=== PATIENT | male | born 1995 | race Hispanic/Latino ===

== ENCOUNTER 2017-12-17 06:42 | Emergency (ER) | payer SELFPAY ==
--- NOTE | 2017-12-17 07:30 | ER ---
Nurse's Notes [facility] Name: Jony Yuan Age: 22 yrs Sex: Male : 1995 Arrival Date: 12/17/2017 Time: 06:43 Bed 20 Private MD: Diagnosis: Acute upper respiratory infection, unspecified Presentation: 12/17 06:52 Presenting complaint: Patient states: "I'm feeling really congested and it hurts and jd3 hard for me to breath". Transition of care: patient was not received from another setting of care. Onset of symptoms was December 17, 2017. Care prior to arrival: None. 06:52 Method Of Arrival: Ambulatory jd3 06:52 Acuity: VIN 4 jd3 Historical: - Allergies: 07:01 No Known Allergies; jd3 - Home Meds: 07:01 None [Active]; jd3 - PMHx: 07:01 None; jd3 - PSHx: 07:01 right 5th finger sx; jd3 - Immunization history:: Adult Immunizations up to date, Adult Immunizations up to date. - Social history:: Smoking status: Patient uses tobacco products, smokes one-half pack cigarettes per day, Smoking status: Patient uses tobacco products, smokes one-half pack cigarettes per day. Screenin:03 Abuse screen: Denies threats or abuse. Nutritional screening: No deficits noted. jd3 Tuberculosis screening: No symptoms or risk factors identified. Fall Risk None identified. Assessment: 07:56 General: Appears in no apparent distress. comfortable, Behavior is calm, cooperative, ch appropriate for age. Pain: Complains of pain in back Pain currently is 5 out of 10 on a pain scale. Neuro: No deficits noted. Cardiovascular: Heart tones S1 S2 present. Respiratory: Airway is patent Trachea midline Respiratory effort is even, unlabored, Breath sounds are clear bilaterally. Respiratory: Reports cough that is pain with cough. GI: Abdomen is flat, non-distended. Derm: Skin is pink, warm \\T\\ dry. Vital Signs: 07:02 BP 139 / 94; Pulse 98; Resp 18 S; Temp 98.1(O); Pulse Ox 96% on R/A; Weight 90.72 kg jd3 (R); Height 5 ft. 9 in. (175.26 cm) (R); Pain 4/10; 07:56 BP 124 / 78; Pulse 88; Resp 14; Temp 98.5; Pulse Ox 99% on R/A; Pain 4/10; ch 07:02 Body Mass Index 29.53 (90.72 kg, 175.26 cm) jd3 ED Course: 06:43 Patient arrived in ED. ds1 06:51 David Okeefe PA is PHCP. jr8 06:51 Michelet Powers MD is Attending Physician. jr8 06:52 Edgar Lopez RN is Primary Nurse. jd3 06:55 Triage completed. jd3 07:03 Arm band placed on. jd3 07:03 Patient has correct armband on for positive identification. Bed in low position. Call j light in reach. Adult w/ patient. 07:04 Report given to Anastasiia BAUTISTA. jd3 07:14 X-ray completed. Portable x-ray completed in exam room. Patient tolerated procedure jb2 well. 07:18 XRAY Chest (1 view) In Process Unspecified. EDMS 07:26 Attending Physician role handed off by Michelet Powers MD jr8 07:26 Conrad Arciniega MD is Attending Physician. jr8 07:56 No apparent distress. Resting quietly. ch 07:56 No provider procedures requiring assistance completed. Patient did not have IV access ch during this emergency room visit. Administered Medications: No medications were administered Outcome: 07:29 Discharge ordered by . jr8 07:56 Discharged to home ambulatory, with family. ch 07:56 Condition: stable 07:56 Discharge instructions given to patient, Instructed on discharge instructions, follow up and referral plans. medication usage, Demonstrated understanding of instructions, follow-up care, medications, Prescriptions given X 3. 07:57 Patient left the ED. Signatures: Dispatcher [employer] EDAZ Anastasiia Hutchinson, RN RN Jeff Avila jb2 Yasmine Irvin ds1 David Okeefe PA PA jr8 Edgar Lopez RN RN jd3
--- NOTE | 2017-12-17 07:30 | EDPHYS ---
Physician Documentation [facility] Name: Jony Yuan Age: 22 yrs Sex: Male : 1995 Arrival Date: 12/17/2017 Time: 06:43 Bed 20 Private MD: ED Physician Conrad Arciniega HPI: 12/17 07:12 This 22 yrs old Male presents to ER via Ambulatory with complaints of Cough. jr8 07:12 The patient or guardian reports cough, that is intermittent, described as mild, with jr8 productive sputum, that is yellow. Onset: The symptoms/episode began/occurred acutely, 4 day(s) ago. Severity of symptoms: At their worst the symptoms were mild, in the emergency department the symptoms are unchanged. Modifying factors: The symptoms are alleviated by nothing, the symptoms are aggravated by nothing. Associated signs and symptoms: Pertinent positives: rhinorrhea, sore throat. The patient has not experienced similar symptoms in the past. The patient has not recently seen a physician. Historical: - Allergies: 07:01 No Known Allergies; jd3 - Home Meds: 07:01 None [Active]; jd3 - PMHx: 07:01 None; jd3 - PSHx: 07:01 right 5th finger sx; jd3 - Immunization history:: Adult Immunizations up to date, Adult Immunizations up to date. - Social history:: Smoking status: Patient uses tobacco products, smokes one-half pack cigarettes per day, Smoking status: Patient uses tobacco products, smokes one-half pack cigarettes per day. ROS: 07:12 Eyes: Negative for injury, pain, redness, and discharge, Neck: Negative for injury, jr8 pain, and swelling, Cardiovascular: Negative for chest pain, palpitations, and edema, Abdomen/GI: Negative for abdominal pain, nausea, vomiting, diarrhea, and constipation, Back: Negative for injury and pain, MS/Extremity: Negative for injury and deformity, Skin: Negative for injury, rash, and discoloration, Neuro: Negative for headache, weakness, numbness, tingling, and seizure. 07:12 ENT: Positive for rhinorrhea, sinus congestion, sore throat, Negative for drainage from ear(s), ear pain, nasal discharge, sinus pain, difficulty swallowing, difficulty handling secretions, hoarseness. 07:12 Respiratory: Positive for cough, with yellow sputum, Negative for dyspnea on exertion, shortness of breath, wheezing. Exam: 07:12 Eyes: Pupils equal round and reactive to light, extra-ocular motions intact. Lids and jr8 lashes normal. Conjunctiva and sclera are non-icteric and not injected. Cornea within normal limits. Periorbital areas with no swelling, redness, or edema. ENT: Nares patent. No nasal discharge, no septal abnormalities noted. Tympanic membranes are normal and external auditory canals are clear. Oropharynx with no redness, swelling, or masses, exudates, or evidence of obstruction, uvula midline. Mucous membranes moist. Neck: Trachea midline, no thyromegaly or masses palpated, and no cervical lymphadenopathy. Supple, full range of motion without nuchal rigidity, or vertebral point tenderness. No Meningismus. Cardiovascular: Regular rate and rhythm with a normal S1 and S2. No gallops, murmurs, or rubs. Normal PMI, no JVD. No pulse deficits. Respiratory: Lungs have equal breath sounds bilaterally, clear to auscultation and percussion. No rales, rhonchi or wheezes noted. No increased work of breathing, no retractions or nasal flaring. Abdomen/GI: Soft, non-tender, with normal bowel sounds. No distension or tympany. No guarding or rebound. No evidence of tenderness throughout. Back: No spinal tenderness. No costovertebral tenderness. Full range of motion. Skin: Warm, dry with normal turgor. Normal color with no rashes, no lesions, and no evidence of cellulitis. MS/ Extremity: Pulses equal, no cyanosis. Neurovascular intact. Full, normal range of motion. Neuro: Awake and alert, GCS 15, oriented to person, place, time, and situation. Cranial nerves II-XII grossly intact. Motor strength 5/5 in all extremities. Sensory grossly intact. Cerebellar exam normal. Normal gait. Vital Signs: 07:02 BP 139 / 94; Pulse 98; Resp 18 S; Temp 98.1(O); Pulse Ox 96% on R/A; Weight 90.72 kg jd3 (R); Height 5 ft. 9 in. (175.26 cm) (R); Pain 4/10; 07:56 BP 124 / 78; Pulse 88; Resp 14; Temp 98.5; Pulse Ox 99% on R/A; Pain 4/10; ch 07:02 Body Mass Index 29.53 (90.72 kg, 175.26 cm) jd3 MDM: 06:51 Patient medically screened. jr8 07:14 Data reviewed: vital signs, nurses notes, radiologic studies, plain films, and as a jr8 result, I will discharge patient. Data interpreted: Pulse oximetry: on room air is 96 %. Interpretation: acceptable. Counseling: I had a detailed discussion with the patient and/or guardian regarding: the historical points, exam findings, and any diagnostic results supporting the discharge/admit diagnosis, radiology results, the need for outpatient follow up, a family practitioner, to return to the emergency department if symptoms worsen or persist or if there are any questions or concerns that arise at home. 12/17 07:01 Order name: XRAY Chest (1 view) jr8 Administered Medications: No medications were administered Disposition: 11:31 Co-signature as Attending Physician, Conrad Arciniega MD. rn Disposition: 12/17/17 07:29 Discharged to Home. Impression: Acute upper respiratory infection, unspecified. - Condition is Stable. - Discharge Instructions: Upper Respiratory Infection, Adult. - Prescriptions for Tessalon Perles 100 mg Oral Capsule - take 1 capsule by ORAL route every 8 hours As needed; 15 capsule. Albuterol Sulfate 90 mcg/actuation - inhale 1-2 puff by INHALATION route every 4-6 hours; 1 Inhaler. Guaifenesin AC 10- 100 mg/5 mL Oral Liquid - take 10 milliliter by ORAL route every 4 hours As needed; 240 milliliter. - Work release form, Medication Reconciliation Form, Thank You Letter, Antibiotic Education, Prescription Opioid Use form. - Follow up: Private Physician; When: 1 week; Reason: Recheck today's complaints, Continuance of care, Re-evaluation by your physician. - Problem is new. - Symptoms have improved. Signatures: Dispatcher [employer] Anastasiia Orta, RN LILY Conrad Arciniega MD MD rn Roszak, Josh, PA PA jr8 Edgar Lopez RN RN jd3
--- NOTE | 2017-12-17 08:33 | RAD REPORT ---
EXAM DESCRIPTION: RAD - Chest Single View - 12/17/2017 7:18 am CLINICAL HISTORY: Cough and congestion, difficulty breathing COMPARISON: July 2017 TECHNIQUE: AP portable chest image was obtained 0707 hours . FINDINGS: No focal lung parenchymal process. No failure or volume overload. Left hilar fullness is n ot substantially different from the comparison. CT study showed no mass or abnormal lymphadenopathy a t the left hilum. Heart and vasculature are normal. No measurable pleural effusion and no pneumothora x. No gross bony abnormality seen. No acute aortic findings suspected. IMPRESSION: No acute cardiopulmonary process. No suspicious change from comparison.
== END 2017-12-17 07:57 | disposition home or self-care (01) ==
LOC: ER 06:42
DX: J06.9 Acute upper respiratory infection, unspecified (principal)
CPT/HCPCS: 71045; 99283